=== PATIENT | male | born 1995 | race Caucasian/White ===

== ENCOUNTER 2018-01-07 15:24 | Emergency (ER) | payer MEDICAID ==
[2018-01-07 15:42] VITALS: BMI 27.4
--- NOTE | 2018-01-07 16:30 | ED PDOC ---
Arrival/HPI - General Chief Complaint: Psychiatric Evaluation Time Seen by Provider: 01/07/18 15:47 Historian: Patient - History of Present Illness Narrative History of Present Illness (Text): 01/07/18 16:27 22-year-old male presents today brought in by ambulance for evaluation of depression. Patient states today he got into an argument with his girlfriend. He states he just wanted his girlfriend to talk to him so he told her that he was going to hurt himself. Patient states it works and the girlfriend was talking to him but then she called the police and the police brought the patient to the emergency room for evaluation. At present time the patient denies suicidal or homicidal ideations. He denies a history of depression. Patient states "I was fighting with my girlfriend and I just wanted to get her attention I had no thoughts of harming myself". Patient denies dizziness or weakness. Denies chest pain or shortness of breath. He denies abdominal pain. Patient admits to using marijuana. He denies alcohol use today. No other complaints Time/Duration: Prior to Arrival Past Medical History - Provider Review Nursing Documentation Reviewed: Yes - Travel History Have you recently traveled outside [place] w/in the past 3 mons?: No - Infectious Disease Hx of Infectious Diseases: None - Cardiac Hx Cardiac Disorders: No Hx Hypertension: No - Pulmonary Hx Tuberculosis: No - Neurological HX Cerebrovascular Accident: No Hx Seizures: No - Hematological/Oncological Hx Cancer: No - Genitourinary/Gynecological Hx Sexually Transmitted Diseases: No - Psychiatric Hx Substance Use: Yes - Anesthesia Hx Anesthesia: No Hx Anesthesia Reactions: No Hx Malignant Hyperthermia: No Family/Social History - Physician Review Nursing Documentation Reviewed: Yes Family/Social History: Unknown Family HX Smoking Status: Current Some Days Smoker Hx Alcohol Use: No Hx Substance Use: Yes Substance used: marijuana Allergies/Home Meds Allergies/Adverse Reactions: Allergies No Known Allergies Allergy (Verified 03/15/16 22:28) Home Medications: Home Meds Medication Instructions Recorded Confirmed No Known Home Med 01/07/18 01/07/18 Review of Systems - Review of Systems Constitutional: absent: Fatigue, Fevers Respiratory: absent: SOB, Cough Cardiovascular: absent: Chest Pain, Palpitations Gastrointestinal: absent: Abdominal Pain, Nausea, Vomiting Genitourinary Male: absent: Dysuria Musculoskeletal: absent: Arthralgias, Back Pain, Neck Pain Skin: absent: Rash, Pruritis Neurological: absent: Headache, Dizziness Psychiatric: absent: Anxiety, Depression, Suicidal Ideation Physical Exam Vital Signs Reviewed: Yes Vital Signs Temp Pulse Resp BP Pulse Ox 01/07/18 18:25 97.7 F 77 18 133/84 95 01/07/18 15:41 97.6 F 69 18 125/62 99 Temperature: Afebrile Blood Pressure: Normal Pulse: Regular Respiratory Rate: Normal Appearance: Positive for: Well-Appearing, Non-Toxic, Comfortable Pain Distress: None Mental Status: Positive for: Alert and Oriented X 3 - Systems Exam Head: Present: Atraumatic Mouth: Present: Moist Mucous Membranes Respiratory/Chest: Present: Clear to Auscultation Cardiovascular: Present: Regular Rate and Rhythm Abdomen: No: Tenderness Upper Extremity: Present: Normal ROM Lower Extremity: Present: Normal ROM Neurological: Present: GCS=15, Speech Normal Skin: Present: Warm, Dry, Normal Color. No: Rashes Psychiatric: Present: Alert, Oriented x 3, Normal Affect, Normal Mood. No: Suicidal Ideation, Homicidal Ideation Medical Decision Making ED Course and Treatment: 01/07/18 16:30 Patient is nontoxic well-appearing in no distress vital signs are stable. CBC WNL CMP WNL Tylenol WNL Salicylate WNL Alcohol level WNL Urine drug screen positive for marijuana UA; wnl ekg normal sinus rhythm with sinus arrhythmia at 66 bpm normal axis normal intervals no ST elevations pt is medically cleared for PES evaluation Patient was seen and evaluated by PES screener Patient cleared psychiatrically for discharge pt was advised to f/u with pmd and mental health center. advised immediate return if symptoms worsen persist or if new symptoms develop. Patient verbalizes understanding of discharge instructions and need for immediate followup. all aspects of this case were discussed the attending of record. Impression; relationship distress Followup with behavioral health Follow-up primary care physician within the next 2 days Return if symptoms worsen persist or if new concerning symptoms develop 01/07/18 19:44 Reassessment Condition: Re-examined - Lab Interpretations Lab Results: 01/07/18 16:15 01/07/18 16:15 Lab Results 01/07/18 16:15: Alcohol, Quantitative < 10 01/07/18 16:15: Salicylates < 1 L, Acetaminophen < 10.0 L 01/07/18 16:15: Urine Opiates Screen Negative, Urine Methadone Screen Negative, Ur Barbiturates Screen Negative, Ur Phencyclidine Scrn Negative, Ur Amphetamines Screen Negative, U Benzodiazepines Scrn Negative, U Oth Cocaine Metabols Negative, U Cannabinoids Screen Positive H 01/07/18 16:15: Sodium 143, Potassium 3.8, Chloride 106, Carbon Dioxide 26, Anion Gap 15, BUN 12, Creatinine 0.8, Est GFR ( Amer) > 60, Est GFR (Non- Af Amer) > 60, Random Glucose 92, Calcium 9.1, Total Bilirubin 0.6, AST 31, ALT 40, Alkaline Phosphatase 106, Total Protein 7.3, Albumin 4.2, Globulin 3.1, Albumin/Globulin Ratio 1.3 01/07/18 16:15: Urine Color Yellow, Urine Appearance Clear, Urine pH 6.0, Ur Specific Pfeifer >= 1.030, Urine Protein Trace H, Urine Glucose (UA) Negative, Urine Ketones Negative, Urine Blood Negative, Urine Nitrate Negative, Urine Bilirubin Negative, Urine Urobilinogen 0.2, Ur Leukocyte Esterase Negative, Urine RBC 0 - 2, Urine WBC 0 - 2, Ur Epithelial Cells None, Amorphous Sediment Few, Urine Bacteria Many 01/07/18 16:15: WBC 6.1 D, RBC 4.68, Hgb 14.1, Hct 39.9 L, MCV 85.3, MCH 30.1, MCHC 35.3, RDW 12.8, Plt Count 288, MPV 9.7, Gran % 64.9, Lymph % (Auto) 22.3, [place]asta % (Auto) 10.0 H, Eos % (Auto) 1.8, Baso % (Auto) 1.0, Gran # 3.95, Lymph # (Auto) 1.4, [place]asta # (Auto) 0.6, Eos # (Auto) 0.1, Baso # (Auto) 0.06 Disposition/Present on Arrival - Present on Arrival Any Indicators Present on Arrival: No History of DVT/PE: No History of Uncontrolled Diabetes: No Urinary Catheter: No History of Decub. Ulcer: No History Surgical Site Infection Following: None - Disposition Have Diagnosis and Disposition been Completed?: Yes Diagnosis: Relationship dysfunction, Psychiatric Evaluation Disposition: HOME/ ROUTINE Disposition Time: 19:45 Patient Plan: Discharge Patient Problems: Current Active Problems Problem Status Onset Relationship dysfunction Acute Condition: GOOD Additional Instructions: Followup with behavioral health center Follow-up primary care physician within the next 2 days Return if symptoms worsen persist or if new concerning symptoms develop Referrals: Cassidy Godinez MD [Staff Provider] - Follow up with primary [facility] [place]Outside] - Follow up with primary [facility] [Outside] - Follow up with primary Forms: [employer] ([place]ian)
[2018-01-07 16:43] LABS: ALB/GLOB RATIO 1.3 (1.1-1.8); ALBUMIN 4.2 g/dL (3.0-4.8); ALT/SGPT 40 U/L (7-56); AST/SGOT 31 U/L (17-59); BLOOD UREA NITROGEN 12 mg/dL (7-21); CALCIUM 9.1 mg/dL (8.4-10.5); GFR AFRICAN-AMERICAN > 60; GFR NON-AFRICAN AMERICAN > 60
[2018-01-07 16:44] LABS: ACETAMINOPHEN < 10.0 ug/ml (10.0-20.0); SALICYLATE < 1 mg/dL (2.0-20.0)
[2018-01-07 16:53] LABS: BARBITURATES, UR NEGATIVE (NEGATIVE); BENZODIAZEPINES, UR NEGATIVE (NEGATIVE); OPIATES, UR NEGATIVE (NEGATIVE); PHENCYCLIDINE, UR NEGATIVE (NEGATIVE)
[2018-01-07 17:11] LABS: BASO # 0.06 K/mm3 (0.0-2.0); EOS # 0.1 (0.0-0.7); EOS % 1.8 % (1.5-5.0); GRAN # 3.95 (1.4-6.5); GRAN % 64.9 % (50.0-68.0); HEMOGLOBIN 14.1 g/dL (14.0-18.0); LYMPH # 1.4 (1.2-3.4); LYMPH % 22.3 % (22.0-35.0); MEAN CELL VOLUME 85.3 fl (80.0-105.0); MEAN CORPUSCULAR HEMOGLOBIN 30.1 pg (25.0-35.0); MEAN CORPUSCULAR HGB CONC 35.3 g/dl (31.0-37.0); MEAN PLATELET VOLUME 9.7 fl (7.0-11.0); MONO # 0.6 (0.1-0.6); RBC 4.68 10^6/uL (3.5-6.1); RED CELL DISTRIBUTION WIDTH 12.8 % (11.5-14.5); WHITE BLOOD COUNT 6.1 10^3/ul (4.5-11.0)
[2018-01-07 17:17] LABS: URINE BILIRUBIN NEGATIVE (NEGATIVE); URINE BLOOD NEGATIVE (NEGATIVE); URINE GLUCOSE (UA) NEGATIVE (NEGATIVE); URINE LEUKOCYTE ESTERASE NEGATIVE Leu/uL (NEGATIVE); URINE PROTEIN TRACE mg/dL (<30 mg/dL); URINE UROBILINOGEN 0.2 E.U./dL (<1 E.U./dL)
[2018-01-07 17:22] LABS: URINE APPEARANCE CLEAR (CLEAR); URINE COLOR YELLOW (YELLOW)
[2018-01-07 17:35] LABS: URINE AMORPHOUS SEDIMENT FEW; URINE BACTERIA MANY (NEG); URINE RBC 0 - 2 /hpf (0-2); URINE WBC 0 - 2 /hpf (0-6)
[2018-01-07 18:27] VITALS: PULSE 77; TEMP 97.7
[2018-01-07 19:27] VITALS: RESP 18
[2018-01-07 20:04] VITALS: BP 136/64; O2SAT 98
--- NOTE | 2018-01-08 09:45 | CARD ---
APPROVED REPORT EKG Measurement Heart [id number] <Conclusion> Normal sinus rhythm with sinus arrhythmia Normal ECG
== END 2018-01-07 19:55 | disposition home or self-care (01) ==
LOC: ED 15:24
DX: Z00.8 Encounter for other general examination (principal); Z63.9 Problem related to primary support group, unspecified

== ENCOUNTER 2018-09-16 20:56 | Emergency (ER) | payer MEDICAID ==
[2018-09-16 20:56] VITALS: BMI 27.4
[2018-09-16 21:49] VITALS: TEMP 98.6
--- NOTE | 2018-09-16 22:46 | ED PDOC ---
Arrival/HPI - General Chief Complaint: Medical Clearance Time Seen by Provider: 09/16/18 21:34 Historian: Patient - History of Present Illness Narrative History of Present Illness (Text): 09/16/18 22:35 Erickson Muniz is a 23 year old male who presents to the Emergency department complaining of generalized weakness. Patient states he took 2 tablets of Advil PM due to having a hard time sleeping and after 1.5 hours, he took another 2-3 tablets of Advil PM. Patient states he is unsure how many he took but he knows it was not more than 3. Patient states since then he has been feeling weak and nauseous with associated dry mouth. Patient states he tried to vomit but nothing came out. Otherwise, no abdominal pain, chest pain, palpitations, palpitations, suicidal ideation, homicidal ideation, or any other complaints. Symptom Onset: Gradual Symptom Course: Unchanged Activities at Onset: Light Context: Home Past Medical History - Provider Review Nursing Documentation Reviewed: Yes - Infectious Disease Hx of Infectious Diseases: None - Cardiac Hx Cardiac Disorders: No Hx Hypertension: No - Pulmonary Hx Tuberculosis: No - Neurological HX Cerebrovascular Accident: No Hx Seizures: No - Hematological/Oncological Hx Cancer: No - Genitourinary/Gynecological Hx Sexually Transmitted Diseases: No - Psychiatric Hx Substance Use: Yes - Anesthesia Hx Anesthesia: No Hx Anesthesia Reactions: No Hx Malignant Hyperthermia: No Family/Social History - Physician Review Nursing Documentation Reviewed: Yes Family/Social History: Unknown Family HX Smoking Status: Heavy Smoker > 10 Cigarettes Daily Hx Alcohol Use: No Hx Substance Use: Yes Substance used: marijuana Allergies/Home Meds Allergies/Adverse Reactions: Allergies No Known Allergies Allergy (Verified 09/16/18 21:58) Home Medications: Home Meds Medication Instructions Recorded Confirmed No Known Home Med 01/07/18 09/16/18 Review of Systems - Physician Review All systems were reviewed & negative as marked: Yes - Review of Systems Constitutional: Other (+generalized weakness) ENT: Other (+dry mouth) Cardiovascular: absent: Chest Pain, Palpitations Gastrointestinal: Nausea. absent: Abdominal Pain, Vomiting Psychiatric: absent: Suicidal Ideation Physical Exam Vital Signs Reviewed: Yes Vital Signs Temp Pulse Resp BP Pulse Ox 09/16/18 21:48 98.6 F 112 H 18 127/80 98 Temperature: Afebrile Blood Pressure: Normal Pulse: Regular Respiratory Rate: Normal Appearance: Positive for: Well-Appearing, Non-Toxic, Comfortable Pain Distress: None Mental Status: Positive for: Alert and Oriented X 3 - Systems Exam Head: Present: Atraumatic, Normocephalic Pupils: Present: PERRL Extroacular Muscles: Present: EOMI Conjunctiva: Present: Normal Mouth: Present: Dry Neck: Present: Normal Range of Motion Respiratory/Chest: Present: Clear to Auscultation, Good Air Exchange. No: Respiratory Distress, Accessory Muscle Use Cardiovascular: Present: Regular Rate and Rhythm, Normal S1, S2. No: Murmurs Abdomen: No: Tenderness, Distention, Peritoneal Signs Back: Present: Normal Inspection Upper Extremity: Present: Normal Inspection. No: Cyanosis, Edema Lower Extremity: Present: Normal Inspection. No: Edema Neurological: Present: GCS=15, CN II-XII Intact, Speech Normal Skin: Present: Warm, Dry, Normal Color. No: Rashes Psychiatric: Present: Alert, Oriented x 3, Normal Insight, Normal Concentration Medical Decision Making ED Course and Treatment: 09/16/18 23:08 Impression: 23 year old male complaining of weakness and dry mouth after taking Advil PM. Plan: -- EKG -- Reassess and disposition Progress Notes: 09/16/18 23:30 Case d/w Eri, pharmacist at poison control, recommends EKG to screen for widened QRS, otherwise if patient's VS are stable and the patient is asymptomatic then patient can be d/c. EKG: ST at 103 bpm, QRS is not widened, (-) acute ST changes, as read by PA. 09/17/18 00:00 On reevaluation, patient reports improvement of symptoms, denies any abdominal pain, N/V. On exam, patient remains awake alert and oriented 3 in no acute distress. Repeat neuro exam shows no focal findings. VS BP 135/71 P 99 R 18 O2sat 98%RA. Advised to follow up with the clinic in 1-2 days without fail. Return to the emergency room at any time for any new or worsening symptoms. Patient states he fully agrees with and understands discharge instructions. States that he agrees with the plan and disposition. Verbalized and repeated discharge instructions and plan. I have given the patient opportunity to ask any additional questions. - PA / DRIER OPERATOR / Resident Statement MD/DO has reviewed & agrees with the documentation as recorded. - Scribe Statement The provider has reviewed the documentation as recorded by the Steph Manriquez Provider Scribe Attestation: All medical record entries made by the Scribe were at my direction and personally dictated by me. I have reviewed the chart and agree that the record accurately reflects my personal performance of the history, physical exam, medical decision making, and the department course for this patient. I have also personally directed, reviewed, and agree with the discharge instructions and disposition. Disposition/Present on Arrival - Present on Arrival Any Indicators Present on Arrival: No History of DVT/PE: No History of Uncontrolled Diabetes: No Urinary Catheter: No History of Decub. Ulcer: No History Surgical Site Infection Following: None - Disposition Have Diagnosis and Disposition been Completed?: Yes Diagnosis: Overdose of medication Disposition: HOME/ ROUTINE Disposition Time: 00:00 Patient Plan: Discharge Patient Problems: Current Active Problems Problem Status Onset Overdose of medication Acute Condition: STABLE Discharge Instructions (ExitCare): Accidental Overdose Additional Instructions: Thank you for letting us take care of you today. You were treated for overdose of medication. The emergency medical care you received today was directed at your acute symptoms. It may take several days for your symptoms to resolve. Return to the Emergency Department if your symptoms worsen, do not improve, or if you have any other problems. Please contact your doctor in 2 days for re-evaluation and follow up / or call one of the physicians/clinics you have been referred to that are listed on the Patient Visit Information form that is included in your discharge packet. Bring any paperwork you were given at discharge with you along with any medications you are taking to your follow up visit. Our treatment cannot replace ongoing medical care by a primary care provider (PCP) outside of the emergency department. Thank you for allowing the [facility] team to be part of your care today. Forms: [employer] ([place]), WORK NOTE
[2018-09-17 00:15] VITALS: BP 115/66; PULSE 95; RESP 16; O2SAT 97
--- NOTE | 2018-09-17 18:17 | CARD ---
APPROVED REPORT Date of service: 09/16/2018 EKG Measurement Heart [id number] <Conclusion> Sinus tachycardia Possible Left atrial enlargement Incomplete right bundle branch block Borderline ECG
== END 2018-09-17 00:15 | disposition home or self-care (01) ==
LOC: ED 20:56
DX: T39.311A Poisoning by propionic acid derivatives, accidental (unintentional), initial encounter (principal); R53.1 Weakness; R68.2 Dry mouth, unspecified; Y92.009 Unspecified place in unspecified non-institutional (private) residence as the place of occurrence of the external cause